=== PATIENT | female | born 1975 | race Caucasian/White ===

== ENCOUNTER → 2017-12-27 | Outpatient (CLI) | payer OTHER ==
--- NOTE | 2017-12-27 23:10 | US ---
EXAMINATION TYPE: US pelvic complete DATE OF EXAM: 12/27/2017 COMPARISON: NONE CLINICAL HISTORY: 42-year-old female Dysmenorrhea N94.6. bloating, clotting during cycles, TECHNIQUE: TA, did not perform TV due to enlarged size of uterus. Date of LMP: 11/27/2017 Findings: Uterus: Anteverted measuring 13.5 x 7.7 x 5.9 cm Endometrial Stripe: 1.4 cm, should correspond to the late secretory phase. Right Ovary: 2.8 x 2.3 x 2.5 cm Left Ovary: 2.5 x 1.9 x 1.5 cm Ovaries are normal size. No evident adnexal abnormality or cul-de-sac free fluid. IMPRESSION: 1. Prominent size of the uterus as above. 2. Endometrial thickness (1.4 cm) should correspond to the late secretory phase of the menstrual cycl e.
== END | disposition home or self-care (01) ==
LOC: RADUSWWP 16:03
PROVIDERS: ATTEND Obstetrics & Gynecology
DX: R93.8 Abnormal findings on diagnostic imaging of other specified body structures (principal); N94.6 Dysmenorrhea, unspecified
CPT/HCPCS: 76856